=== PATIENT | female | born 1940 | race Caucasian/White ===

== ENCOUNTER 2019-11-30 07:16 | Day surgery (SDC) | payer MEDICARE ==
[~2019-11-30] VITALS: Ht 165.2 cm; Wt 83.7 kg
[2019-11-30] VITALS (11 sets, daily range): BP systolic 119–157; BP diastolic 50–65; PULSE 54–69; TEMP 97.9–98.3
[2019-11-30] MEDS ORDERED: GLUCOPHAGE500 MG/TAB PO (07:38)
[2019-11-30] MEDS ORDERED: DIOVAN 160MG160 MG PO (07:39)
[2019-11-30] MEDS ORDERED: TOPROL XL100 MG PO ×2 (07:40)
[2019-11-30] MEDS ORDERED: ZYLOPRIM 300MG300 MG PO (07:41)
[2019-11-30] MEDS ORDERED: ASPIRIN 81M81 MG/TA2 PO (07:42)
[2019-11-30] MEDS ORDERED: PRILOSEC 20MG20 MG PO (07:42)
[2019-11-30] MEDS ORDERED: KRILL OIL 3001 EACH PO (07:43)
[2019-11-30] MEDS ORDERED: LUTEIN20 M1 PO (07:44)
[2019-11-30] MEDS ORDERED: B-12 500 MCG PO (07:44)
[2019-11-30] MEDS ORDERED: CRESTOR40 MG PO (07:45)
[2019-11-30] MEDS ORDERED: VITAMIN D31000 IU PO (07:45)
[2019-11-30] MEDS ORDERED: NOVOLIN 70/30 710 ML SQ ×2 (07:46→07:47)
[2019-11-30] MEDS ORDERED: CARDIZEM CD 18180 MG PO (07:47)
[2019-11-30] MEDS ORDERED: ACTOS 15MG TAB15 MG PO (07:48)
[2019-11-30] MEDS ORDERED: HCTZ 25MG TAB25 MG PO (07:49)
[2019-11-30 08:15] LABS: HEMOGLOBIN 10.8 g/dl (12.5-16.0); MEAN CELL VOLUME 85 fl (80.0-100.0); MEAN CORPUSCULAR HEMOGLOBIN 27 pg (27.0-31.0); MEAN CORPUSCULAR HGB CONC 32 g/dl (33.0-37.0); MEAN PLATELET VOLUME 9.8 fl (7.4-10.4); PLATELET COUNT 284 K/mm3 (130-400); REDCELL DISTRIBUTION WIDTH-CV 16.5 % (11.5-14.5)
[2019-11-30 08:21] LABS: HEMATOCRIT 34.1 % (37.0-47.0)
[2019-11-30 08:23] LABS: PROTHROMBIN TIME 11.4 SECONDS (9.7-12.8)
[2019-11-30 08:25] LABS: PARTIAL THROMBOPLASTIN TIME 32.3 SECONDS (26.0-37.0)
[2019-11-30 08:29] LABS: CALCIUM 10.3 mg/dL (8.4-10.2); CREATININE, serum 1.01 (0.52-1.25); POTASSIUM 4.3 mmol/L (3.4-5.0)
--- NOTE | 2019-11-30 08:48 | NUR ---
SEE MERGE FOR MEDICATION ADMINISTRATION TIMES AND INTRA AND POST SEDATION ASSESSMENTS.
--- NOTE | 2019-11-30 08:50 | NUR ---
Unable to palpate or doppler pedal pulses at this time. Dr Flores notified and stated he is aware of this. physical laboratory assistant staff also in room and notified of pre procedure assessment. Will continue to follow.
[2019-11-30] MEDS ORDERED: IMDUR 30MG30 MG/TAB PO (09:36)
== END 2019-11-30 15:00 | disposition home or self-care (01) ==
LOC: COL.CAR 07:16
PROVIDERS: Internal Medicine Cardiovascular Disease
DX: I25.10 Atherosclerotic heart disease of native coronary artery without angina pectoris (principal); R06.00 Dyspnea, unspecified; I73.9 Peripheral vascular disease, unspecified; Z79.899 Other long term (current) drug therapy; Z88.0 Allergy status to penicillin; Z88.2 Allergy status to sulfonamides; Z88.8 Allergy status to other drugs, medicaments and biological substances
CPT/HCPCS: J0153; J1644; J2250; J3010; Q9967